=== PATIENT | female | born 1980 | race Caucasian/White ===

== ENCOUNTER 2025-01-26 23:16 | Emergency (ER) | payer SELFPAY ==
[2025-01-26 23:18] VITALS: BP 171/113; PULSE 108; RESP 16; TEMP 36.6; O2SAT 97; BMI 25.2
[2025-01-26 23:24] VITALS: BP 169/116; PULSE 113; RESP 20; O2SAT 99
--- NOTE | 2025-01-26 23:34 | ECG_ITS ---
Via6 Test Date: 2025-01-26 Pat Name: Cheryl Luther Department: Room: Gender: Female Rn Review: : 1980 Requested By: Reece Block Order Number: [id number] Romana MD: LARRY JOY Measurements Intervals [place] Rate: 110 P: 53 TN: 153 QRS: 26 QRSD: 84 T: 40 QT: 345 QTc: 467 Interpretive Statements SINUS TACHYCARDIA POSSIBLE LEFT ATRIAL ENLARGEMENT [-0.1mV P-WAVE IN V1/V2] POSSIBLE RIGHT VENTRICULAR CONDUCTION DELAY [RSR (QR) IN V1/V2] ABNORMAL RHYTHM ECG No previous ECG available for comparison Electronically Signed On 01-27-2025 18:16:43 CDT by LARRY JOY [id number]
--- NOTE | 2025-01-27 | PC.NURSE ---
Patient got up from bed, disconnected herself, and tried to open er exit doors. Pt stated I want to leave. My is here. Pt was calm and cooperative. Pt was asked if she wanted to see MD and she stated No . Pt was alert and oriented x 4. Pt was able to state name, , where she was, month, and year.
== END 2025-01-26 23:50 | disposition left against medical advice (07) ==
PROVIDERS: Emergency Provider Family Medicine
DX: R94.31 Abnormal electrocardiogram [ECG] [EKG] (principal)
CPT/HCPCS: 93005

== ENCOUNTER 2025-10-12 14:53 | Inpatient (IN) | payer BC, SELFPAY ==
[2025-10-12] VITALS (20 sets, daily range): BP systolic 106–157; BP diastolic 66–92; PULSE 76–98; RESP 16–20; TEMP 36.1–36.8; O2SAT 90–100
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
--- OUTSIDE RECORDS SUMMARY | 2025-10-12 14:57 | XMS_ITS | Clinical Summary ---
Author Organization [facility] Address [address] [place] [address] Care Team Providers Care Electronics Processing Supervisor Name Role Phone Marxia Cao Primary Care Provider Allergies Active Allergy Reactions Criticality Noted Date Comments Duloxetine Other (See Comments) 06/07/2018 Suicidal ideations and nightmares Gabapentin Rash,Other (See Comments) Low 01/05/2018 Latex Hives,Itching High 11/24/2009 Tizanidine Other (See Comments) 05/11/2017 Causes memory loss, over sedation. Medications Narcan 4 mg/actuation [place], Non-Aerosol ADMINISTER A SINGLE SPRAY IN ONE NOSTRIL UPON SIGNS OF OPIOID OVERDOSE. CALL 911. REPEAT AFTER 3 MINUTES IF NO RESPONSE. 022 Active EPINEPHrine (EPIPEN) 0.3 mg/0.3 mL Auto-Injector Inject 0.3 mL (0.3 mg) by intramuscular injection 1 time daily as needed for Anaphylaxis. 1 Each 3 023 Active albuterol sulfate HFA 90 mcg/actuation aerosol inhalerIndicati ons:Mild intermittent asthma without complication Take 2 Puffs by inhalation every 6 hours as needed for Shortness of Breath. 8.5 Gram 5 024 Active omeprazole (PriLOSEC) 20 mg Capsule, Delayed Release(E.C.) Take 20 mg by mouth 2 times daily. Active metoprolol succinate (TOPROL XL) 50 mg Extended Release 24 hour tablet Take 100 mg by mouth 2 times daily. Active budesonide-form oteroL (SYMBICORT) 160-4.5 mcg/actuation HFA Aerosol InhalerIndicati ons:Mild persistent asthma, unspecified whether complicated Take 2 Puffs by inhalation 2 times daily. 10.2 Gram 025 Active folic acid (FOLVITE) 1 mg tabletIndicatio ns:Alcohol abuse Take 1 Tablet (1 mg) by mouth daily. 90 Tablet 3 025 Active methocarbamoL (ROBAXIN) 500 mg tabletIndicatio ns:Chronic midline low back pain with left-sided sciatica Take 1 Tablet (500 mg) by mouth 4 times daily. 120 Tablet 1 025 Active ondansetron (ZOFRAN ODT) 8 mg Tablet, Rapid DissolveIndicat ions:Nausea Dissolve 1 tablet on top of tongue then swallow with saliva every 8 hours as needed for nausea or vomiting 30 Tablet 3 025 Active tirzepatide, weight loss, (Zepbound) 2.5 mg/0.5 mL Pen InjectorIndicat ions:Weight gain Inject 0.5 mL (2.5 mg) by subcutaneous injection every 7 days. 6 mL 3 025 Active ALPRAZolam (XANAX) 1 mg tabletIndicatio ns:Generalized anxiety disorder TAKE 1 TABLET BY MOUTH THREE TIMES DAILY NEEDED FOR ANXIETY. Try to wean down to two times daily prn. 90 Tablet 2 025 Active cloNIDine HCL (CATAPRES) 0.3 mg tabletIndicatio ns:Essential hypertension Take 1 Tablet (0.3 mg) by mouth 3 times daily as needed for Blood Pressure (elevated blood pressure). 90 Tablet 1 025 Active HYDROcodone-silvia taminophen (NORCO) 5-325 mg tabletIndicatio ns:Chronic midline low back pain with left-sided sciatica Take 1 Tablet by mouth every 8 hours as needed for Pain, Moderate. Max Daily Amount: 3 Tablets 30 Tablet 025 Active valsartan-hydro CHLOROthiazide (DIOVAN HCT) 160-12.5 mg tabletIndicatio ns:Essential hypertension Take 1 tablet by mouth once daily 100 Tablet 3 025 Active silver sulfADIAZINE (SILVADENE) 1 % Cream Apply to affected area daily. 50 Gram 2 025 Active valsartan-hydro CHLOROthiazide (DIOVAN HCT) 160-12.5 mg tabletIndicatio ns:Essential hypertension Take 1 Tablet by mouth daily. 100 Tablet 3 024 2024 Discontinued HYDROcodone-silvia taminophen (NORCO) 5-325 mg tabletIndicatio ns:Chronic midline low back pain with left-sided sciatica Take 1 Tablet by mouth every 8 hours as needed for Pain, Moderate. Max Daily Amount: 3 Tablets 30 Tablet 025 2024 Discontinued(R eorder) Hospital, Clinic, or Other Facility Administered Medication Ordered Dose Route Frequency Start Date End Date Status medroxyPROGESTERone (DEPO-PROVERA) injection 150 mgIndications:Encounter for contraceptive management, unspecified type 150 mg IM EVERY 90 DAYS 09/22/2022 Active medroxyPROGESTERone (DEPO-PROVERA) 150 mg/mL injection 150 mgIndications:Encounter for contraceptive management, unspecified type 150 mg IM EVERY 90 DAYS 07/28/2025 Active Active Problems Problem Noted Date Diagnosed Date Dehydration 05/28/2025 Colitis with rectal bleeding 05/23/2025 Vasovagal syncope 12/19/2024 Weight gain 10/03/2024 Seizure 08/20/2024 Atypical chest pain 07/19/2024 Esophageal spasm 07/19/2024 Other constipation 07/19/2024 Grade I diastolic dysfunction 07/05/2024 Tobacco user 01/10/2024 Essential hypertension 03/25/2021 Chronic midline low back pain with left-sided sc iatica 12/26/2020 Restless leg syndrome 12/26/2020 Grief at loss of child 05/02/2017 Generalized anxiety disorder 02/08/2010 Degeneration of lumbar or lumbosacral interverte bral disc 02/08/2010 Encounters Date Type Department Care Team Description 10/03/2025 Patient Self-Triage [facility] [address] [place] [address] 10/03/2025 Telephone [facility] [address] [place] [facility] [place] [address] Marixa Cao DO New Prescription Request; Patient Communication 10/02/2025 Refill [facility] [address] [place] [address] Marixa Cao, Essential hypertension 09/30/2025 External Device Data [facility] ABSTRACTION Provider, Abstract 09/23/2025 External Device Data [facility] ABSTRACTION Provider, Abstract 09/23/2025 External Device Data [facility] ABSTRACTION Provider, Abstract 09/18/2025 Refill [facility] [address] [place] [address] Marixa Cao, Chronic midline low back pain with left-sided sciatica 09/16/2025 External Device Data [facility] ABSTRACTION Provider, Abstract 09/10/2025 External Device Data [facility] ABSTRACTION Provider, Abstract 09/10/2025 External Device Data [facility] ABSTRACTION Provider, Abstract 09/02/2025 Orders Only [facility] [address] [place] [address] Marixa Cao DO 09/01/2025 Telephone [facility] [address] [place] [address] Nohemy Turpin FNP Discuss medication refill and continuation of care 09/01/2025 Telephone [facility] [address] [facility] [place] [phone] Anna Paul, HERSON [facility] After Hours 08/26/2025 Orders Only [facility] [address] [place] [address] Nohemy Turpin FNP 08/25/2025 4:20 PM CDT Office Visit [facility] [address] [place] [address] Nohemy Turpin FNP Hypertensive emergency (Primary Dx) 08/25/2025 Orders Only [facility] [address] [place] [address] Nohemy Turpin FNP 08/19/2025 External Device Data [place] ABSTRACTION Provider, Abstract 08/19/2025 External Device Data [facility] ABSTRACTION Provider, Abstract 08/12/2025 8:40 AM CDT Office Visit [facility] [address] [place] [address] Marixa Cao DO Colitis with rectal bleeding (Primary Dx); Chronic midline low back pain with left-sided sciatica; Generalized anxiety disorder; Full incontinence of feces; Essential hypertension; Marital conflict 08/12/2025 Orders Only [facility] [address] [place] [address] Zoe Holbrook Colitis with rectal bleeding 08/01/2025 Telephone [facility] [address] [place] [address] Marixa Cao DO Patient Communication 08/01/2025 Medication Prior Auth Encounter [facility] Prescription Management Dept [address] [place] [address] [place] [address] Erin Monge, PHARMACIST Weight gain 07/28/2025 9:30 AM CDT Clinical Support [facility] [address] [place] [address] Encounter for contraceptive management, unspecified type (Primary Dx) 07/24/2025 Orders Only [facility] [address] [place] [address] Nohemy Turpin FNP Weight gain (Primary Dx) 07/23/2025 Refill [facility] [address] [place] [address] Nohemy Turpin FNP Weight gain 07/17/2025 Orders Only [facility] [address] [facility] [address] [place] [address] Lynette Mead, HERSON Chest pain, unspecified type (Primary Dx); Essential hypertension; Grade I diastolic dysfunction 07/15/2025 External Device Data [facility] ABSTRACTION Provider, Abstract 07/15/2025 External Device Data [facility] ABSTRACTION Provider, Abstract 07/15/2025 External Device Data [facility] ABSTRACTION Provider, Abstract 07/15/2025 Telephone [place] [address] [facility] [address] [place] [address] Cr Tejada MD Referral needs to be extended 07/15/2025 Telephone [facility] [address] [facility] [address] [place] [address] Cr Tejada MD Scheduling CT Scan from Last 3 Months Immunizations Immunization Administration Dates Next Due (ADACEL/BOOSTRIX)(10 YR UP) TDAP VACCINE, 0.5ML, IM 03/03/2025 (SPIKEVAX) (12 YRS UP PRIMAR Y SERIES) COVID-19 VACCINE - MRNA-1273(PF) 100 MCG/0.5 ML IM SUSP 05/04/2021 INFLUENZA VACCINE QUADRIVALENT 6 MOS UP PF IM INFLUENZA VACCINE TRIVALENT SPLIT VIRUS, (6 MOS UP), 0.5ML (PF), IM 07/19/2024 Influenza Vaccine Split 3+ Yrs IM 10/20/2014 Influenza Vaccine Tri Split 4+ Im 10/20/2014 Family History Medical History Relation Name Comments Colon Cancer Cousin Heart Disease Father Yuriy Bacon I don t remember Unknown Father Yuriy Bacon Colon Cancer Maternal Uncle Breast Cancer Mother Funmi Villarreal Other Mother Funmi Villarreal Relation Name Status Comments Cousin Father Yuriy Bacon Maternal Uncle Alive Mother Funmi Villarreal Alive Social History Tobacco Use Types Packs/Day Years Used Date Smoking Tobacco: Never Passive Smoke Exposure: Never Smokeless Tobacco: Never Tobacco Cessation:Counseling Given: Not Answered Alcohol Use Standard Drinks/Week Comments Yes 1.7 (1 standard drink = 0.6 oz p ure alcohol) Feeling Safe Answer Date Recorded Are you in a relationship wi th someone who hurts you emotionally and/or physically? No 05/29/2025 Comments No Sex and Gender Information Value Date Recorded Sex Assigned at Not on file Legal Sex Female 2:07 AM CLINICAL RN MANAGER Gender Identity Not on file Sexual Orientation Not on file Last Filed Vital Signs Vital Sign Reading Time Taken Comments Blood Pressure 200/108 08/25/2025 3:50 PM CDT Pulse 116 08/25/2025 3:37 PM CDT Temperature 36.9 C (98.4 F) 08/25/2025 3:37 PM CDT Respiratory Rate 18 08/25/2025 3:37 PM CDT Oxygen Saturation 95% 08/25/2025 3:37 PM CDT Inhaled Oxygen Concentration - - Weight 67.9 kg (149 lb 12.8 oz) 08/25/2025 3:37 PM CDT Height 157.5 cm (5' 2 ) 08/25/2025 3:37 PM CDT Body Mass Index 27.4 08/25/2025 3:37 PM CDT Plan of Treatment Upcoming Encounters Date Type Department Care Team (Late st Contact Info) Description 11/05/2025 11:40 AM CLINICAL RN MANAGER Office Visit [facility] [place] [address] [place] [address] Marixa Cao, DO [address] [place] [address] 12/04/2025 1:45 PM CLINICAL RN MANAGER Appointment [facility] Neurology [facility] [address] [place] [address] Trung Escoto MD [address] [place] [address] Health Maintenance Due Date Last Done Comments HEPATITIS B VACCINES (1 of 3 - 19+ 3-dose series) 2000 HPV/Cotest (21-29) 2002 HPV VACCINES (1 - 3-dose SCD M series) 2008 CERVICAL CANCER SCREENING 2011 HPV/Cotest (30-65) 2011 PAP SMEAR 2011 BREAST CANCER SCREENING 2021 Preventative Visit- Commercial 11/13/2024 INFLUENZA VACCINE (#1) 2025 , 11/30/2023, 10/18/2021, Additional history exists COVID-19 Vaccine (2 - 2024-2 6 season) 2025 05/04/2021 Pre-Diabetes and Diabetes Screening 05/13/2027 05/13/2024 DTAP/TDAP/TD VACCINES (2 - T d or Tdap) 03/03/2035 03/03/2025 Procedures Procedure Name Priority Date/Time Associated Diagnosis Comments EKG 12-LEAD Routine 08/25/2025 4:25 PM CDT EKG 12-LEAD Routine 08/25/2025 8:16 AM CDT GI PATHOGEN PCR PANEL Routine 08/12/2025 4:26 PM CDT Colitis with rectal bleeding ELASTASE,PANCREATIC (EL-1),FECAL Routine 08/12/2025 4:21 PM CDT Colitis with rectal bleeding CALPROTECTIN, FECAL Routine 08/12/2025 4 :21 PM CDT Colitis with rectal bleeding GIARDIA & CRYPTOSPORIDIUM ANTIGEN Routine 08/12/2025 4:21 PM CDT Colitis with rectal bleeding STOOL CULTURE W/SHIGA TOXIN Routine 08/12/2025 4:21 PM CDT Colitis with rectal bleeding POC , URINE Routine 07/28/2025 9:40 AM CDT Encounter for contraceptive management, unspecified type HEMOGLOBIN A1C Routine 05/13/2024 4:20 PM CDT Weight gain Other fatigue from Last 3 Months or Most Recently Relevant to Health Maintenance Results * EKG 12-LEAD (08/25/2025 4:25 PM CDT) Only the most recent of2 resultswithin the time period is included. us Nohemy Turpin NETWORK FIELD ENGINEER ECG ORDERABLES Final Resu lt [facility] CLIA# [id number] [address] [place] [address] * GI PATHOGEN PCR PANEL (08/12/2025 4:26 PM CDT) [facility] GI Pathogen PCR panel NOT DETECTED No nucleic acids detected. 08/13/2025 7:19 PM CDT [facility] Stool STOOL SPECIMEN / Unknown Collection / Unknown 08/12/2025 4:26 PM CDT 08/13/2025 4:55 PM CDT Narrative [facility] - 08/13/2025 7:19 PM CDT The Film Array GI Panel is a multiplexed nucleic acid detection test for 22 targets of bacteria, viruses, and parasites in stool that cause infectious diarrhea. Bacteria: Campylobacter C. difficile Plesiomonas shigelloides Salmonella Vibrio Vibrio cholerae Yersinia enterocolitica Enteroaggregative E. Coli (EAEC) Enteropathogenic E. Coli (EPEC) Enterotoxigenic E. Coli (ETEC) Shiga-like toxin-producing E. Coli (STEC) E. Coli O157 Shigella/Enteroinvasive E. Coli (EIEC) Viruses: Adenovirus F 40/41 Astrovirus Norovirus GI/GII Rotavirus A Sapovirus Parasites: Cryptosporidium Cyclospora cayetanensis Entamoeba histolytica Giardia duodenalis Nohemy Turpni NETWORK FIELD ENGINEER MICROBIOLOGY - GENERAL ORD ERABLES Final Result [facility] CLIA # [id number] [address] [place] [address] * (ABNORMAL) CALPROTECTIN, FECAL (08/12/2025 4:21 PM CDT) [facility] CALPROTECTIN, FECAL 128(H) mcg/g [facility], Comment: Reference Range: <50 Normal 50-120 Borderline >120 Elevated Calprotectin in Crohn's disease and ulcerative colitis can be five to several thousand times above the reference population (50 mcg/g or less). Levels are usually 50 mcg/g or less in healthy patients and with irritable bowel syndrome. Repeat testing in 4-6 weeks is suggested for borderline values. Test Performed at: [facility], [address] [place] [phone] Jody Salas MD,PhD,SIOBHAN Stool STOOL SPECIMEN / Unknown 08/12/2025 4:21 PM CDT 08/13/2025 2:46 AM CDT Nohemy Turpin NETWORK FIELD ENGINEER BODY FLUIDS AND STOOLS Fin al Result [facility] [phone] [facility], [address] [place] [phone] * ELASTASE,PANCREATIC (EL-1),FECAL (08/12/2025 4:21 PM CDT) PANCREATIC ELASTASE-1 789 >200 mcg/g [facility], Comment: E-1 mcg/g feces Interpretation <100 Severe exocrine pancreatic insufficiency 100-200 Mild to moderate exocrine pancreatic insufficiency >200 Normal Test Performed at: [facility], [address] [place] [phone] Jody Salas MD,PhD,SIOBHAN Stool STOOL SPECIMEN / Unknown 08/12/2025 4:21 PM CDT 08/13/2025 2:46 AM CDT Nohemy Turpin NETWORK FIELD ENGINEER BODY FLUIDS AND STOOLS Fin al Result [facility] [phone] [facility], [address] [place] [phone] * GIARDIA & CRYPTOSPORIDIUM ANTIGEN (08/12/2025 4:21 PM CDT) CRYPTOSPORIDIUM AG SEE NOTE [facility] Comment: CRYPTOSPORIDIUM ANTIGEN, EIA Micro Number: [id number] Test Status: Final Specimen Source: Stool Specimen Quality: Adequate Cryptosporidium: Not Detected Reference Range: Not Detected NOTE: Due to intermittent shedding, one negative sample does not necessarily rule out the presence of a parasitic infection. GIARDIA AG SEE NOTE [facility] Comment: GIARDIA AG, EIA, STOOL Micro Number: [id number] Test Status: Final Specimen Source: Stool Specimen Quality: Adequate Giardia Result 1: Not Detected Reference Range: Not Detected NOTE: Due to intermittent shedding, one negative sample does not necessarily rule out the presence of a parasitic infection. Test Performed at: [place] [address] [address] [place] [address] [facility] Stool STOOL SPECIMEN / Unknown 08/12/2025 4:21 PM CDT 08/13/2025 2:46 [address] [facility] MICROBIOLOGY - GENERAL ORD ERABLES Final Result [facility] [phone] [place] [address] [address] [place] [address] * STOOL CULTURE W/SHIGA TOXIN (08/12/2025 4:21 PM CDT) Pathologist [facility] CAMPY ANTIGEN, EIA SEE NOTE [facility] Comment: CAMPYLOBACTER SPP. AG,EIA Micro Number: [id number] Test Status: Final Specimen Source: Stool Specimen Quality: Adequate Campy Ag Result: Not Detected Reference Range: Not Detected E.COLI SHIGA TOXIN, EIA SEE NOTE [facility] Comment: SHIGA TOXINS, EIA W/RFL TO E.COLI O157 CULTURE Micro Number: [id number] Test Status: Final Specimen Source: Stool Specimen Quality: Adequate Shiga Toxin: Not Detected Reference Range: Not Detected STOOL CULTURE SEE NOTE [facility] Comment: SALMONELLA AND SHIGELLA, CULTURE Micro Number: [id number] Test Status: Final Specimen Source: Stool Specimen Quality: Adequate Result: No Salmonella or Shigella isolated Test Performed at: [employer] [facility] [place] [address] [address] [place] [address] [facility] Stool STOOL SPECIMEN / Unknown 08/12/2025 4:21 PM CDT 08/13/2025 2:46 AM CDT Nohemy Turpin NETWORK FIELD ENGINEER MICROBIOLOGY - GENERAL ORD ERABLES Final Result [facility] [phone] [facility] [address] [place] [address] * POC , URINE (07/28/2025 9:40 AM CDT) HCG QUAL URINE POC Negative Negative, Indeterminate [facility] INTERNAL KIT QC POC Pass Pass [facility] KIT LOT NUMBER POC [id number] [facility] KIT EXP DATE POC 01/21/2027 [facility] Urine 07/28/2025 9:40 AM CDT Marixa Cao DO POINT OF CARE TESTING Final Result [facility] CLIA# [id number] [address] [place] [address] * HEMOGLOBIN A1C (05/13/2024 4:20 PM CDT) [facility] HEMOGLOBIN A1C 5.4 <5.7 % of total Hgb [facility] Comment: For the purpose of screening for the presence of diabetes: <5.7% Consistent with the absence of diabetes 5.7-6.4% Consistent with increased risk for diabetes (prediabetes) > or =6.5% Consistent with diabetes This assay result is consistent with a decreased risk of diabetes. Currently, no consensus exists regarding use of hemoglobin A1c for diagnosis of diabetes in children. According to [place] Diabetes Association (ADA) guidelines, hemoglobin A1c <7.0% represents optimal control in non- diabetic patients. Different metrics may apply to specific patient populations. Standards of Medical Care in Diabetes(ADA). ESTIMATED AVERAGE GLUCOSE (MG/DL) 108 mg/dL [facility] ESTIMATED AVERAGE GLUCOSE (MMOL/L) 6.0 mmol/L [facility] Comment: This test was performed on the Tamara rosa c503 platform. Effective 01/29/24, a change in test platforms from the [employer] Surgical Scrub Technician to the Tamara rosa c503 may have shifted HbA1c results compared to historical results. Based on laboratory validation testing conducted at [facility], the Tamara platform relative to the Gons[employer] platform had an average increase in HbA1c value of < or = 0.3%. This difference is within accepted variability established by the National Glycohemoglobin Standardization Program. Note that not all individuals will have had a shift in their results and direct comparisons between historical and current results for testing conducted on different platforms is not recommended. Test Performed at: [facility] [address] [place] [address] Rabia George MD Blood 05/13/2024 4:20 PM CDT 05/14/2024 3:35 AM CDT Johngelycharlotte Turpin NETWORK FIELD ENGINEER CHEMISTRY ORDERABLES Final Result [facility] [phone] [facility] [address] [place] [phone] from Last 3 Months or Most Recently Relevant to Health Maintenance Insurance BLUE ACCESS/TRUE BLUE PPO Advance Directives For more information, please contact: [phone] * Full Code (Latest Code Status on File) Date Activated Date Inactivated Comments 05/29/2025 12:01 PM 05/29/2025 3:26 PM Care Teams Electronics Processing Supervisor Relationship Specialty Start Date End Date Marixa Cao DO [address] [place] [id number] PCP - General 12/08/09
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
[2025-10-12] MEDS: ondansetron 2 mg/ML SDV 2 mL 4 MG IVP ×2 (15:19→20:48)
[2025-10-12] MEDS: HYDROcodone-acetaminophen 5-325 mg Tablet 1 TAB PO (15:19)
[2025-10-12 15:36] LABS: Hematocrit 41.3 % (36-47); Hemoglobin 14.10 g/dL (11.27-16.99); Mean Corpuscular HGB Conc 34.1 g/dL (30-55); Mean Corpuscular Hemoglobin 32.6 pg (27-33); Mean Corpuscular Volume 95.6 fl (85-98); Nucleated Red Blood Cells % 0 %; Platelet Count 222 10^3/cmm (157-399); Red Blood Count 4.32 10^6/uL (3.85-5.65); White Blood Count 8.44 10^3/uL (3.29-11.43)
[2025-10-12] MEDS: ceFAZolin 2,000 mg SDV 2000 MG IVP ×2 (15:40→23:53)
[2025-10-12] MEDS: HYDROmorphone 0.5 MG/0.5 ML INJ 1 MG IVP ×2 (15:49→17:10)
[2025-10-12 15:50] LABS: INR 0.85 (0.8-1.2); Prothrombin Time 12.30 SECONDS (12.1-14.9)
[2025-10-12 15:54] LABS: Alanine Aminotransferase 109 U/L (0-33); Albumin Level 3.9 g/dL (3.5-5.2); Alcohol Level 241 mg/dL (0-10); Alkaline Phosphatase 54 U/L (35-105); Anion Gap 18.6 (5-19); Aspartate Amino Transferase 93 U/L (0-32); Blood Urea Nitrogen 5 mg/dL (6-20); Calcium 8.3 mg/dL (8.5-10.5); Carbon Dioxide 22 mmol/L (22-29); Chloride 92 mmol/L (98-107); Globulin 2.8 g/dL (1.3-4.6); Glucose 117 mg/dL (65-115); Osmolality Calculated 266 mOsm/kg (285-295); Potassium 3.6 mmol/L (3.5-5.1); Sodium 129 mmol/L (136-145); Total Protein 6.7 g/dL (6.6-8.7)
--- NOTE | 2025-10-12 16:22 | PC.PHAR ---
Addendum entered by Sapphire Sanchez 10/12/25 16:24: Phoned the pharmacy for directions for SSD cream Original Note: Pt states she takes Clonidine 0.3mg tid prn elevated blood pressure which replaces Metoprolol Succ. ER 100mg 200mg daily and Valsartan/hcts 160-12.5mg daily.
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
--- NOTE | 2025-10-12 17:36 | W.PM.OPSUD ---
Surgery/Procedure H&P Update DATE OF PROCEDURE: October 12, 2025 DATE H&P PERFORMED: 10/12/25 H&P UPDATE INFORMATION: I have reviewed H&P completed within last 30 days, I have examined patient prior to procedure, No changes to prior documentation, H&P is in [facility] EMR on date indicated and Risks and benefits of the procedure reviewed PLANNED PROCEDURE: Operation Date: 10/12/25 17:10 Proposed Procedures p Excisional Debridement of right foot with wound vac placement(Right) - García Dubon DPM
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
[2025-10-12] MEDS: BUPivacaine 0.5% INJ 30 mL 40 ML INJECTION (18:01)
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
--- NOTE | 2025-10-12 19:18 | PC.NURSE ---
1840 - Report called to RYLEE Sheehan and patient taken to room 257 accompanied by signee and . All personal belongings with patient. DIRECTOR OF CLINICAL APPLICATIONS at bedside upon arrival to the room to obtain vital signs.
[2025-10-12 20:05] LABS: Estmated Average Glucose 97; Hemoglobin A1C 5.0 % (4.0-6.0)
[2025-10-12 20:18] LABS: Hepatitis A Antibody IgM Non-Reactive (Nonreactive)
[2025-10-12 20:48] LABS: Hepatitis B Surface Antigen Non-Reactive (Nonreactive)
[2025-10-12] MEDS: thiamine 100 mg/mL 2mL SDV IM (20:49)
[2025-10-13] VITALS (9 sets, daily range): BP systolic 168–189; BP diastolic 79–117; PULSE 91–120; RESP 16–20; TEMP 36.4–36.9; O2SAT 97–100
[2025-10-13] MEDS: HYDROcodone-acetaminophen 5-325 mg Tablet 1 TAB PO ×2 (04:54→12:52)
[2025-10-13] MEDS: multivitamin therapeutic Tablet 1 TAB PO (04:54)
[2025-10-13 04:58] LABS: Hematocrit 36.9 % (36-47); Hemoglobin 13.10 g/dL (11.27-16.99); Mean Corpuscular HGB Conc 35.5 g/dL (30-55); Mean Corpuscular Hemoglobin 33.8 pg (27-33); Mean Corpuscular Volume 95.1 fl (85-98); Nucleated Red Blood Cells % 0 %; Platelet Count 181 10^3/cmm (157-399); Red Blood Count 3.88 10^6/uL (3.85-5.65); White Blood Count 7.55 10^3/uL (3.29-11.43)
[2025-10-13 05:19] LABS: Alanine Aminotransferase 82 U/L (0-33); Albumin Level 3.9 g/dL (3.5-5.2); Alkaline Phosphatase 46 U/L (35-105); Anion Gap 15.5 (5-19); Aspartate Amino Transferase 56 U/L (0-32); Blood Urea Nitrogen 7 mg/dL (6-20); Calcium 8.6 mg/dL (8.5-10.5); Carbon Dioxide 26 mmol/L (22-29); Chloride 94 mmol/L (98-107); Globulin 2.4 g/dL (1.3-4.6); Glucose 92 mg/dL (65-115); Magnesium 1.9 mg/dL (1.7-2.3); Osmolality Calculated 270 mOsm/kg (285-295); Potassium 4.5 mmol/L (3.5-5.1); Sodium 131 mmol/L (136-145); Total Protein 6.3 g/dL (6.6-8.7)
[2025-10-13 06:48] LABS: HCG, Serum Qual Negative (Negative)
--- NOTE | 2025-10-13 08:00 | ECG_ITS ---
[employer] Test Date: 2025-10-13 Pat Name: Cheryl Luther Department: Room: 257 Gender: Female Svp Monetization: : 1980 Requested By: Popeye Loaiza Order Number: [id number] Romana MD: Masha Lam M.D. Interpretive Statements Lung unchanged pre/post procedure; Intraprocedure shortess of breath; Symptoms resoled by discharge PROCEDURE: At the baseline, the EKG revealed sinus tachycardia. The baseline heart was 112 bpm with a blood pressue of 158/91 mm of Hg Lexiscan was infused over a period of 20 seconds. A total of 0.4 milligrams of Lexiscan was infused. The stress phase was continued for a total of 5 minutes. Heart rate at the end of the stress phase was 140 bpm with a blood pressure 157/75 mm of Hg. The EKG at the peak infusion revealed no significant changes. Sestamibi was injected 20 seconds after the Lexiscan infusion. Heart rate at the end of the recovery phase was 135 bpm with a blood pressure of 165/83 mm of Hg. CONCLUSION: 1. No significant EKG changes with the LexiScan infusion 2. No LexiScan induced chest pain or cardiac arrhythmia 3. Normal blood pressure and heart rate response 4. Sestamibi/sestamibi perfusion scan pending; see separate report. Electronically Signed On 10-14-2025 09:17:03 FUSION JUNCTURE GRINDER by Masha Lam M.D. [id number] [id number]
[2025-10-13] MEDS: ceFAZolin 2,000 mg SDV 2000 MG IVP ×2 (08:21→16:18)
--- NOTE | 2025-10-13 09:32 | SUR.PHASEII ---
PAIN SCALE Floor staff notified that patient is requesting prn pain medication for right foot pain.
[2025-10-13] MEDS: HYDROmorphone 0.5 MG/0.5 ML INJ 0.75 MG IVP ×2 (09:40→16:19)
--- NOTE | 2025-10-13 10:00 | PC.CHAP ---
Pastoral Care Encounter/Spiritual Assessment Type of Contact [] Declined pile fabric knitter visit [] Patient/Family/Request visit [] Outpatient visit [] Follow-up visit [] Physician referral [] Code/Alert [x] Routine visit [] Staff referral [] Actively dying [] Patient sleeping [] Family support [] [x] Out of room [] Palliative care [] [] Receiving care in room [] Pre-surgical visit [] Trauma [] Long length of stay [] ICU visit [] Other: Relational/Emotional Strength [] Patient feels connected with others/family/visitors/staff [] Distress [] Loneliness/isolation [] Abandonment Spirituality of Patient [] Person of Keisha [] Attends Spiritism of their Keisha [] Believes in Prayer [] Reads Bible or Restorationist materials [] There are Spiritual issues to be addressed Ground Transportation Operator Interventions [] Prayer [] Active listening [] Non-anxious presence [] Spiritual/emotional support [] Crisis/trauma care [] Spiritual counseling [] Bereavement support [] Provided bereavement packet [] Provided Bible/devotional materials [] Provided toy/stuffed animal, coloring book to patient or family member [] Provided Communion [] Anointing/[place] [] Salvation [] Completed spiritual assessment [] Other: Impact on Illness or Injury [] Angry [] Fearful [] Anxious [] Often cries [] Exhaustion [] Unable to work [] Unable to attend yarsanism [] Unable to walk/stand [] Unable to read [] Unable to drive [] Unable to eat/drink [] Unable to sleep [] Unable to be with family [] Patient intubated [] Other: Summary Time spent with patient
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
--- NOTE | 2025-10-13 19:35 | NMCV_ITS ---
NM sol perf SPECT r/s* [id number] Cheryl Luther Age: 44 Gender: F : 1980 Exam Date: 10/13/2025 08:24 Ordering Phys: Popeye Loaiza MD Technologist: CASSY Pearce Exam Location: [facility] Indications: cp STRESS TEST Please [facility] IMAGE PROTOCOL Rest/Stress 1 Lexiscan Day Radiopharmaceutical Dose (mCi) Administration Site Administered by Rest: Tc-99m 10.4 IV Amina Cisse, [employer] Sestamibi Stress:Tc-99m 32.7 IV Amina Naranjogle, [employer] Sestamibi Rest: 13-Oct-2025 60 Discovery 630 Stress: 13-Oct-2025 30 Discovery 630 0.4mg Lexiscan. Supine position only as patient was unable to lay prone. SPECT RESULTS Technical Quality: Good Raw Data Analysis: Normal Image Corrections: No attenuation or motion correction applied Summed Stress Score: 1 Summed Rest Score: 3 Summed Difference Score: 0 PERFUSION FINDINGS Small area of slightly decreased tracer uptake was noted in the mid inferolateral segment. No significant reversibility was noted in this area FUNCTIONAL RESULTS (calculated via Gated SPECT) Stress Image LV EF (%): 82 Stress EDV (mL):77 TID: 1.21 Stress ESV (mL):14 FUNCTIONAL FINDINGS: Segmental wall motion analysis revealing no gross wall motion abnormalities. The transient ischemic dilatation ratio was found to be elevated to 1.21 IMPRESSIONS 1. Myocardial perfusion imaging revealing small area of slightly decreased persistent tracer uptake in the mid inferolateral segment, suggestive of myocardial scarring versus attenuation artifact. 2. Normal LV ejection fraction of 82%. 3. LV wall motion analysis revealing no gross wall motion abnormalities. 4. Normal LV volume 5. Elevated transient ischemic dilatation ratio of 1.21 may suggest endocardial ischemia. However the positive predictive value of this finding is limited. Clinical correlation is recommended. No similar previous studies are available for comparison Dr Masha Lam MD [facility] (Electronically Signed) Final Date: 13 October 2025 11:50 S
--- NOTE | 2025-10-13 19:35 | USCV_ITS ---
Cheryl Luther Age: 44 Gender: F : 1980 Exam Date: 10/13/2025 13:47 Ordering Phys: Popeye Loaiza MD Technologist: ALEKSEY Exam Location: [facility] [place] Indication: Prosthetic valve BP: 185 / 109 HR: 89 Rhythm: Sinus Technical Quality: Adequate MEASUREMENTS (Male / Female) Normal Values 2D ECHO LV Diastolic Diameter PLAX 5.5 cm 4.2 - 5.9 / 3.9 - 5.3 cm IVS Diastolic Thickness 0.7 cm 0.6 - 1.0 / 0.6 - 0.9 cm IVS Systolic Thickness 0.9 cm LVPW Diastolic Thickness 0.9 cm 0.6 - 1.0 / 0.6 - 0.9 cm LVPW Systolic Thickness 0.9 cm LVOT Diameter 2.0 cm LV Ejection Fraction 2D Teich 24.8 % LV Ejection Fraction MOD 4C 59.7 % LV Ejection Fraction MOD 2C 58.0 % LV Ejection Fraction 2C AL 63.0 % LA Diameter 2.3 cm RA Systolic Volume 4C AL 43.5 ml RA Systolic Volume 4C MOD 41.1 ml LA Sys Volume AL 44.3 cm cubed LA Sys Volume Index AL 25.9 cm cubed/m squared Aorta at Sinotubular Diameter 2.7 cm IVC Diameter 1.6 cm M-MODE LA Ao Ratio MM 1.1 AV Cusp Separation MM 1.5 cm DOPPLER AV Peak Velocity 147.0 cm/s LVOT Peak Velocity 122.0 cm/s AV Area Cont Eq vti 2.8 cm squared AV Area Cont Eq pk 2.6 cm squared MV Peak Velocity 99.0 cm/s MV Area PHT 6.5 cm squared Mitral E to A Ratio 1.0 TR Peak Velocity 196.0 cm/s TR Peak Gradient 15.4 mmHg TV Peak E Velocity 76.0 cm/s PV Peak Velocity 100.0 cm/s FINDINGS Left Ventricle Normal left ventricular size and systolic function, EF 63%no regional wall motion abnormalities. . Right Ventricle Normal right ventricular size and systolic function. Right Atrium Normal right atrial size. Left Atrium Normal left atrial size. IA Septum Appears to be intact Mitral Valve No gross abnormalities noted Aortic Valve The aortic valve leaflets could not be visualized well.? Bioprosthetic. Normal velocity across the valve Tricuspid Valve No gross abnormalities noted Pulmonic Valve Pulmonic valve not well visualized. Pericardium No pericardial effusion Aorta Normal aortic annulus size. IVC Normal IVC diameter. CONCLUSIONS Normal left ventricular size and systolic function, EF 63% No regional wall motion abnormalities. . Normal flow velocity across aortic valve. No significant stenotic or regurgitant lesions Normal cardiac chamber sizes There is no pericardial effusion. No similar previous studies are available for comparison Dr Masha Lam MD [facility] (Electronically Signed) Final Date: 13 October 2025 14:15 S
--- NOTE | 2025-10-13 21:14 | PC.NURSE ---
pts blood glucose is 111 at 20:04
--- NOTE | 2025-10-13 21:40 | PC.NURSE ---
Pt is declining to have any antihypertensives even with the knowledge of her blood pressure being 180s/110s. Md has been made aware. Pt was educated that if the blood pressure remains elevated they are at high risk of stroke and other serious life threatening conditions. Pt verbalized understanding of the risk of not taking the ordered antihypertensive med(s). All questions were answered from the pt and no further questions were present at this time.
[2025-10-14] VITALS (14 sets, daily range): BP systolic 154–191; BP diastolic 91–115; PULSE 76–135; RESP 14–17; TEMP 36.6–37.1; O2SAT 97–100
[2025-10-14] MEDS: ceFAZolin 2,000 mg SDV 2000 MG IVP ×4 (00:04→23:02)
[2025-10-14] MEDS: HYDROcodone-acetaminophen 5-325 mg Tablet 1 TAB PO ×2 (00:04→07:57)
[2025-10-14] MEDS: multivitamin therapeutic Tablet 1 TAB PO (05:04)
[2025-10-14 05:20] LABS: Hematocrit 35.7 % (36-47); Hemoglobin 12.30 g/dL (11.27-16.99); Mean Corpuscular HGB Conc 34.5 g/dL (30-55); Mean Corpuscular Hemoglobin 33.3 pg (27-33); Mean Corpuscular Volume 96.7 fl (85-98); Nucleated Red Blood Cells % 0 %; Platelet Count 149 10^3/cmm (157-399); Red Blood Count 3.69 10^6/uL (3.85-5.65); White Blood Count 5.53 10^3/uL (3.29-11.43)
[2025-10-14 05:41] LABS: Alanine Aminotransferase 48 U/L (0-33); Albumin Level 3.7 g/dL (3.5-5.2); Alkaline Phosphatase 42 U/L (35-105); Anion Gap 13.8 (5-19); Aspartate Amino Transferase 39 U/L (0-32); Blood Urea Nitrogen 6 mg/dL (6-20); Calcium 8.7 mg/dL (8.5-10.5); Carbon Dioxide 29 mmol/L (22-29); Chloride 91 mmol/L (98-107); Globulin 2.3 g/dL (1.3-4.6); Glucose 101 mg/dL (65-115); Osmolality Calculated 268 mOsm/kg (285-295); Potassium 3.8 mmol/L (3.5-5.1); Sodium 130 mmol/L (136-145); Total Protein 6.0 g/dL (6.6-8.7)
--- NOTE | 2025-10-14 11:15 | PC.NURSE ---
Patient to surgery
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
--- NOTE | 2025-10-14 12:07 | W.PM.OPSUD ---
Surgery/Procedure H&P Update DATE OF PROCEDURE: October 14, 2025 DATE H&P PERFORMED: 10/12/25 H&P UPDATE INFORMATION: I have reviewed H&P completed within last 30 days, I have examined patient prior to procedure, No changes to prior documentation, H&P is in [facility] EMR on date indicated and Risks and benefits of the procedure reviewed PLANNED PROCEDURE: Operation Date: 10/12/25 17:10 Proposed Procedures p Excisional Debridement of right foot with wound vac placement(Right) - García Dubon DPM Operation Date: 10/14/25 12:10 Proposed Procedures p Debridement(Right) - García Dubon DPM s ORIF Toe ORIF Metatarsal 1st and 2nd metatarsals, and debridement(Right) - García Dubon DPM
[2025-10-14] MEDS: fentaNYL 50 mcg/mL INJ 2mL IVP (12:09)
--- NOTE | 2025-10-14 12:09 | ANES.PREANE2 ---
Pre-Anesthetic Assessment Height/Weight: Height 1.57 m Weight 67.132 kg Temp Pulse Resp BP Pulse Ox O2 Del Method O2 Flow Rate 98.5 F 94 16 174/107 99 Room Air 2 10/14/25 11:39 10/14/25 11:39 10/14/25 11:39 10/14/25 11:39 10/14/25 11:39 10/14/25 11:39 10/13/25 07:18 Operation Date: 10/12/25 17:10 Proposed Procedures p Excisional Debridement of right foot with wound vac placement(Right) - García Dubon DPM Operation Date: 10/14/25 12:10 Proposed Procedures p Debridement(Right) - García Dubon DPM s ORIF Toe ORIF Metatarsal 1st and 2nd metatarsals, and debridement(Right) - García Dubon DPM Familial anesthetic complications: none Was Beta Noel taken within 24 hours: N/A Was Clonidine taken within 24 hours: N/A Last intake: Intake Last Liquid Date 10/13/25 Last Liquid Time 22:30 Last Solid Date 10/13/25 Last Solid Time 16:30 Social Alcohol and Tobacco vapes Exam alert, oriented x 3, clear to auscultation bilaterally and regular rate & rhythm Pulmonary Asthma CV/HEM Stable Angina heart valve replaced Neuropsych Cerebrovascular Accident Anesthetic Plan ASA status: 3 Anesthesia: General Risk of > 500 ml blood loss (7ml/kg in children): No Medications/Allergies Home Medications ?Medication ?Instructions ?Recorded ?Confirmed ?Last Taken ?Type albuterol sulfate 90 mcg/actuation 2 puff inhalation Q6H PRN 10/17/24 10/12/25 Unknown History aerosol inhaler Shortness Of Breath alprazolam 1 mg tablet 1 mg PO TID 10/17/24 10/12/25 10/11/25 History epinephrine 0.3 mg/0.3 mL 0.3 mg IM Q10M PRN Allergic 10/17/24 10/12/25 Unknown History injection, auto-injector Reaction hydrocodone 5 mg-acetaminophen 325 1 tab PO Q8H PRN Pain 10/17/24 10/12/25 Unknown History mg tablet medroxyprogesterone 150 mg/mL 150 mg IM .every 90 days 10/17/24 10/12/25 Unknown History intramuscular suspension methocarbamol 500 mg tablet 500 mg PO QID PRN Muscle Spasm 10/17/24 10/12/25 Unknown History multivitamin 1 tab PO DAILY 10/17/24 10/12/25 10/11/25 History naloxone 4 mg/actuation nasal 4 mg intranasal Q2M PRN Opioid 10/17/24 10/12/25 Unknown History spray (Narcan) Overdose clonidine HCl 0.3 mg tablet 0.3 mg PO TID PRN elevated blood 10/12/25 10/12/25 10/11/25 History pressure glucosamine sulf dipot 1 cap PO BID 10/12/25 10/12/25 10/11/25 History chlr,msm,chond 550 mg-C 30 mg-karyna 1 mg capsule (Glucosamine Chondroitin) silver sulfadiazine 1 % topical 1 applic topical DAILY 10/12/25 10/12/25 Unknown History cream Allergies Allergy/AdvReac Type Severity Reaction Status Date / Time gabapentin Allergy Unknown Verified 01/26/25 23:25 latex Allergy Unknown Verified 01/26/25 23:25 Current Medications Generic Name Dose Route Start Last Admin Trade Name Freq PRN Reason Stop Dose Admin Hydrocodone Bitart/Acetaminophen 1 tab 10/12/25 19:35 10/14/25 07:57 Hydrocodone-Acetaminophen 5-325 Mg Tablet PO 1 tab Q8H PRN Administration PAIN Alprazolam 1 mg 10/12/25 20:37 10/14/25 07:57 Alprazolam 0.5 Mg Tablet PO 1 mg TID PRN Administration ANXIETY Cefazolin Sodium 2,000 mg 10/13/25 00:00 10/14/25 07:57 Cefazolin 2,000 Mg Sdv IVP 2,000 mg Q8H LEYLA Administration Protocol Folic Acid 1 mg 10/13/25 05:00 10/14/25 05:04 Folic Acid 1 Mg Tablet PO 1 mg On Hold: 10/14/25 11:31 DAILY LEYLA Administration Comment: Order held by Process Transfer Hydromorphone HCl 0.75 mg 10/12/25 18:06 10/13/25 16:19 Hydromorphone 0.5 Mg/0.5 Ml Inj IVP 0.75 mg Q4H PRN Administration SEVERE PAIN Lactated Ringer's 1,000 mls @ 30 mls/hr 10/12/25 20:00 10/14/25 00:04 Lactated Ringers IV 30 mls/hr On Hold: 10/14/25 11:31 .Q24H LEYLA Administration Comment: Order held by Process Transfer Insulin Human Lispro 0 unit 10/12/25 19:35 10/14/25 07:35 Insulin Lispro 100 Unit/1 Ml SUBCUT Not Given On Hold: 10/14/25 11:31 WM&BEDTIME LEYLA Comment: Order held by Process Protocol Transfer Methocarbamol 500 mg 10/12/25 19:35 10/14/25 07:57 Methocarbamol 500 Mg Tablet PO 500 mg On Hold: 10/14/25 11:31 QID PRN Administration Comment: Order held by Process Muscle Spasm Transfer Metoprolol Succinate 50 mg 10/13/25 21:00 10/14/25 05:04 Metoprolol Succinate Er (24 Hr) 50 Mg Tablet PO Not Given On Hold: 10/14/25 11:31 BID LEYLA Comment: Order held by Process Transfer Multivitamins Therapeutic 1 tab 10/13/25 05:00 10/14/25 05:04 Multivitamin Therapeutic Tablet PO 1 tab On Hold: 10/14/25 11:31 DAILY LEYLA Administration Comment: Order held by Process Transfer Ondansetron HCl 4 mg 10/12/25 19:35 10/12/25 20:48 Ondansetron 2 Mg/Ml Sdv 2 Ml IVP 4 mg On Hold: 10/14/25 11:31 Q6H PRN Administration Comment: Order held by Process vomiting, or N/V if npo Transfer Thiamine Mononitrate 100 mg 10/13/25 05:00 10/14/25 05:04 Thiamine 100 Mg Tablet PO 100 mg On Hold: 10/14/25 11:31 DAILY LEYLA Administration Comment: Order held by Process Transfer [facility] Anesthesia Medical History (Updated 10/14/25 @ 11:32 by Karina Breaux MD) Colon cancer Reports history of colon cancer removal (malignant polyps?), did not complete adjuvant therapy and radiation Lung nodules Stroke 4 weeks ago, did not seek assessment or treatment Asthma Hypertension Surgical History Heart valve replaced Social History Smoking and tobacco/nicotine status: never used tobacco/nicotine Alcohol intake: current Substance/Drug Use: never Additional social history: Vapes Marital status: Data Anesthesia 10/14/25 04:56 10/14/25 04:56 Short CBC 10/12/25 10/13/25 10/14/25 Range/Units 15:30 04:50 04:56 WBC 8.44 7.55 5.53 (3.29-11.43) 10^3/uL Hgb 14.10 13.10 12.30 (11.27-16.99) g/dL Hct 41.3 36.9 35.7 L (36-47) % MCV 95.6 95.1 96.7 (85-98) fl Plt Count 222 181 149 L (157-399) 10^3/cmm Neut % (Auto) 41.8 54.2 41.2 % Neut # (Auto) 3.53 4.09 2.28 (1.8-7.7) 10^3/uL BMP 10/12/25 10/13/25 10/14/25 15:30 04:50 04:56 Sodium 129 L 131 L 130 L Potassium 3.6 4.5 3.8 Chloride 92 L 94 L 91 L Carbon Dioxide 22 26 29 BUN 5 L 7 6 Creatinine 0.5 0.6 0.5 Glucose 117 H 92 101 Calcium 8.3 L 8.6 8.7 Cardiac Enzymes 10/12/25 Range/Units 15:30 Creatine Kinase 620 H* (26-192) U/L Liver Function 10/12/25 10/13/25 10/14/25 Range/Units 15:30 04:50 04:56 Total Bilirubin 0.3 0.4 0.8 (0.15-1.2) mg/dL AST 93 H 56 H 39 H (0-32) U/L ALT 109 H 82 H 48 H (0-33) U/L Alkaline Phosphatase 54 46 42 (35-105) U/L Albumin 3.9 3.9 3.7 (3.5-5.2) g/dL Coags 10/12/25 15:30 PT 12.30 INR 0.85 Microbiology 10/12/25 18:12 Anaerobic Culture - Preliminary Other Source 10/12/25 18:12 Gram Stain - Final Other Source Cardiac Studies: Echocardiogram 10/13/25 Sestamibi Stress Test (Cardiology) 10/13/25
--- NOTE | 2025-10-14 13:08 | SUR.PHASEII ---
surgery delayed. Doctor Ling explained delay reason. Pt transorted back to 257.
[2025-10-14] MEDS: HYDROmorphone 0.5 MG/0.5 ML INJ 0.75 MG IVP (13:30)
[2025-10-14] MEDS: ondansetron 2 mg/ML SDV 2 mL 4 MG IVP ×2 (16:46→20:56)
[2025-10-14] MEDS: oxyCODONE 5 mg IR Tab/Cap PO ×2 (16:49→20:56)
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
[2025-10-15] VITALS (18 sets, daily range): BP systolic 133–183; BP diastolic 82–116; PULSE 68–91; RESP 13–22; TEMP 36.2–37; O2SAT 92–100; BMI 26.9
[2025-10-15] MEDS: multivitamin therapeutic Tablet 1 TAB PO (05:14)
[2025-10-15] MEDS: oxyCODONE 5 mg IR Tab/Cap PO ×3 (05:14→13:49)
[2025-10-15 05:36] LABS: Hematocrit 35.6 % (36-47); Hemoglobin 12.50 g/dL (11.27-16.99); Mean Corpuscular HGB Conc 35.1 g/dL (30-55); Mean Corpuscular Hemoglobin 33.5 pg (27-33); Mean Corpuscular Volume 95.4 fl (85-98); Nucleated Red Blood Cells % 0 %; Platelet Count 182 10^3/cmm (157-399); Red Blood Count 3.73 10^6/uL (3.85-5.65); White Blood Count 5.22 10^3/uL (3.29-11.43)
--- NOTE | 2025-10-15 05:51 | PC.NURSE ---
Report received at this time. Patient to be brought down to OPS.
[2025-10-15 05:55] LABS: Alanine Aminotransferase 34 U/L (0-33); Albumin Level 3.6 g/dL (3.5-5.2); Alkaline Phosphatase 45 U/L (35-105); Anion Gap 11.6 (5-19); Aspartate Amino Transferase 32 U/L (0-32); Blood Urea Nitrogen 5 mg/dL (6-20); Calcium 8.9 mg/dL (8.5-10.5); Carbon Dioxide 28 mmol/L (22-29); Chloride 98 mmol/L (98-107); Creatinine Clr Calc Pharmacy 108.2752; Globulin 2.5 g/dL (1.3-4.6); Glucose 112 mg/dL (65-115); Osmolality Calculated 276 mOsm/kg (285-295); Potassium 3.6 mmol/L (3.5-5.1); Sodium 134 mmol/L (136-145); Total Protein 6.1 g/dL (6.6-8.7)
--- NOTE | 2025-10-15 06:19 | ANES.PAUD2 ---
Pre-Anesthetic Update Pre-Anesthetic Assessment: Date of Surgery/Procedure: 10/15/25 Proposed Procedure: Operation Date: 10/12/25 17:10 Proposed Procedures p Excisional Debridement of right foot with wound vac placement(Right) - García Dubon DPM Operation Date: 10/14/25 11:00 Proposed Procedures p Debridement(Right) - García Dubon DPM s ORIF Toe ORIF Metatarsal 1st and 2nd metatarsals, and debridement(Right) - García Dubon DPM Operation Date: 10/15/25 07:00 Proposed Procedures p Debridement(Right) - García Dubon DPM s ORIF 1st and 2nd metatarsals(Right) - García LingSAMINABelkis Any changes to Pre-Anesthetic Assessment?: No Last Intake: Intake Last Liquid Date 10/13/25 Last Liquid Time 22:30 Last Solid Date 10/13/25 Last Solid Time 16:30 Labs Last 48hrs: Short CBC 10/14/25 10/15/25 Range/Units 04:56 04:47 WBC 5.53 5.22 (3.29-11.43) 10^ 3/uL Hgb 12.30 12.50 (11.27-16.99) g/ dL Hct 35.7 L 35.6 L (36-47) % MCV 96.7 95.4 (85-98) fl Plt Count 149 L 182 (157-399) 10^3/c mm Neut % (Auto) 41.2 46.4 % Neut # (Auto) 2.28 2.43 (1.8-7.7) 10^3/u L BMP 10/14/25 10/15/25 04:56 04:47 Sodium 130 L 134 L Potassium 3.8 3.6 Chloride 91 L 98 Carbon Dioxide 29 28 BUN 6 5 L Creatinine 0.5 0.6 Glucose 101 112 Calcium 8.7 8.9 Cardiac Enzymes 10/14/25 10/15/25 Range/Units 04:56 04:47 Creatine Kinase 459 H* 363 H* (26-192) U/L Liver Function 10/14/25 10/15/25 Range/Units 04:56 04:47 Total Bilirubin 0.8 0.6 (0.15-1.2) mg/dL AST 39 H 32 (0-32) U/L ALT 48 H 34 H (0-33) U/L Alkaline Phosphata se 42 45 (35-105) U/L Albumin 3.7 3.6 (3.5-5.2) g/dL Vitals: Temperature 97.3 F L 10/15/25 06:00 Temperature Source Temporal Artery S can 10/15/25 06:00 Pulse Rate 77 10/15/25 06:00 Respiratory Rate 16 10/15/25 06:00 Respiratory Effort Spontaneous, Non- Labored 10/13/25 09:30 Respiratory Depth Normal 10/14/25 20:56 Respiratory Patter n Normal 10/12/25 19:46 Blood Pressure 178/95 10/15/25 06:00 Blood Pressure Chantel n 122 10/15/25 06:00 Blood Pressure Pos ition Semi Fowlers 10/15/25 03:41 Pulse Oximetry 98 10/15/25 06:00 Oxygen Delivery Me thod Room Air 10/15/25 06:00 Oxygen Flow Rate 2 10/13/25 07:18 Sepsis Recent Feve r Within 48 Hours No 10/12/25 14:56 Exam: Pre-Anes Outpt Exam: alert, oriented x 3, clear to auscultation bilaterally and regular rate & rhythm Cardiac Studies: Echocardiogram 10/13/25 Sestamibi Stress Test (Cardiology) 10/13/25
[2025-10-15 06:23] LABS: HCG, Serum Qual Negative (Negative)
--- NOTE | 2025-10-15 06:46 | W.PM.OPSUD ---
Surgery/Procedure H&P Update DATE OF PROCEDURE: October 15, 2025 DATE H&P PERFORMED: 10/12/25 H&P UPDATE INFORMATION: I have reviewed H&P completed within last 30 days, I have examined patient prior to procedure, No changes to prior documentation, H&P is in [facility] EMR on date indicated and Risks and benefits of the procedure reviewed PLANNED PROCEDURE: Operation Date: 10/12/25 17:10 Proposed Procedures p Excisional Debridement of right foot with wound vac placement(Right) - García Dubon DPM Operation Date: 10/14/25 11:00 Proposed Procedures p Debridement(Right) - García Dubon DPM s ORIF Toe ORIF Metatarsal 1st and 2nd metatarsals, and debridement(Right) - García Dubon DPM Operation Date: 10/15/25 07:00 Proposed Procedures p Debridement(Right) - García Dubon DPM s ORIF 1st and 2nd metatarsals(Right) - García Dubon DPM
[2025-10-15] MEDS: ceFAZolin 2,000 mg SDV 2000 MG IVP ×2 (07:04→09:33)
--- NOTE | 2025-10-15 07:06 | PC.NURSE ---
PATIENT TAKEN TO OB OR
[2025-10-15] MEDS: BUPivacaine 0.5% INJ 30 mL INJECTION (08:07)
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
--- NOTE | 2025-10-15 08:35 | ANE.PACU2 ---
Inpatient post-anesthesia follow up: Airway intact: Yes Vital signs: Temperature 98.3 F Pulse Rate 83 Respiratory Rate 17 Blood Pressure 183/114 Pulse Oximetry 100 Oxygen Delivery Me thod Room Air Oxygen Flow Rate 2 Fraction of Inspir ed Oxygen Hydration adequate: Yes Nausea and vomiting: No Pain level: 1 Mental status: Baseline
--- NOTE | 2025-10-15 11:15 | PC.NURSE ---
pt refused to let us check her Blood Sugar at lunch time she said there is no need to check it, it is always high
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
== END 2025-10-15 15:32 | disposition home or self-care (01) | DRG 504 ==
LOC: ER 17:05 → OR 17:15 → MEDSURG 10-13 01:48
PROVIDERS: Internal Medicine; Podiatrist Foot & Ankle Surgery; Admitting Provider Student in an Organized Health Care Education/Training Program; Emergency Provider Emergency Medicine; PCP Family Medicine; Visit Provider Internal Medicine
PROC: 0JCQ0ZZ Extirpation of Matter from Right Foot Subcutaneous Tissue and Fascia, Open Approach (ICD-10-PCS; principal; 2025-10-12 17:00)
PROC: 0QSN04Z Reposition Right Metatarsal with Internal Fixation Device, Open Approach (ICD-10-PCS; principal; 2025-10-15 07:00)
PROC: 0QSN04Z Reposition Right Metatarsal with Internal Fixation Device, Open Approach (ICD-10-PCS; 2025-10-15 07:00)
DX: S92.311B Displaced fracture of first metatarsal bone, right foot, initial encounter for open fracture (principal); E87.1 Hypo-osmolality and hyponatremia; I69.954 Hemiplegia and hemiparesis following unspecified cerebrovascular disease affecting left non-dominant side; K92.1 Melena; M62.82 Rhabdomyolysis; S92.321B Displaced fracture of second metatarsal bone, right foot, initial encounter for open fracture; W32.0XXA Accidental handgun discharge, initial encounter; J45.909 Unspecified asthma, uncomplicated; R07.9 Chest pain, unspecified; D69.6 Thrombocytopenia, unspecified; F10.129 Alcohol abuse with intoxication, unspecified; Y90.8 Blood alcohol level of 240 mg/100 ml or more; R73.9 Hyperglycemia, unspecified; I10 Essential (primary) hypertension; R91.8 Other nonspecific abnormal finding of lung field; F17.290 Nicotine dependence, other tobacco product, uncomplicated; Z91.128 Patient's intentional underdosing of medication regimen for other reason; Z86.004 Personal history of in-situ neoplasm of other and unspecified digestive organs; Z95.3 Presence of xenogenic heart valve
CPT/HCPCS: 36415; 36416; 73620; 73630; 76000; 78452; 80053; 80074; 80307; 82550; 82962; 83036; 83735; 84703; 85025; 85610; 87070; 87075; 87205; 88307; 93017; 93306; 96372; 96374; 96375; 97116; 97161; 97165; 99285; A9500; C1713; J0690; J1100; J1171; J1885; J2250; J2405; J2704; J2785; J3010; J3411; J3490; J7030; J7120; J9999

== ENCOUNTER → 2025-10-20 13:59 | Outpatient (BNVA) | payer BC, SELFPAY | PROVIDERS: PCP Family Medicine; Visit Provider Podiatrist Foot & Ankle Surgery | DX: M79.671 Pain in right foot (principal); Z98.890 Other specified postprocedural states | CPT/HCPCS: 73630 ==

== ENCOUNTER 2025-10-21 09:47 | Outpatient (CLI) | payer BC, SELFPAY | END 2025-10-21 09:48 | disposition home or self-care (01) | LOC: SPT 09:48 | PROVIDERS: PCP Family Medicine; Visit Provider Podiatrist Foot & Ankle Surgery | DX: Z46.89 Encounter for fitting and adjustment of other specified devices (principal); S92.321D Displaced fracture of second metatarsal bone, right foot, subsequent encounter for fracture with routine healing; X58.XXXD Exposure to other specified factors, subsequent encounter | CPT/HCPCS: L4361 ==

== ENCOUNTER → 2025-10-29 14:28 | Outpatient (BNVA) | payer BC, SELFPAY | PROVIDERS: PCP Family Medicine; Visit Provider Podiatrist Foot & Ankle Surgery | DX: M25.571 Pain in right ankle and joints of right foot (principal); Z98.890 Other specified postprocedural states | CPT/HCPCS: 73610; 73630 ==

== ENCOUNTER → 2025-11-11 11:41 | Outpatient (BNVA) | payer BC, SELFPAY | PROVIDERS: PCP Family Medicine; Visit Provider Podiatrist Foot & Ankle Surgery | DX: Z98.890 Other specified postprocedural states (principal); S92.311A Displaced fracture of first metatarsal bone, right foot, initial encounter for closed fracture; X58.XXXA Exposure to other specified factors, initial encounter | CPT/HCPCS: 73630 ==